=== PATIENT | female | born 2005 | race Hispanic/Latino ===

== ENCOUNTER 2023-07-10 22:27 | Outpatient (CLI) | payer OTHER ==
[~2023-07-10] VITALS: Ht 152.4 cm; Wt 54.7 kg
[~2023-07-10 22:27] MED LIST: PANT20TA6 PO
[2023-07-10 22:46] VITALS: BP 120/68
[2023-07-10] MEDS ORDERED: PRENTAB9 PO (22:51)
[2023-07-10] MEDS ORDERED: HOME MED LIST COMPLETE! XX SCH (22:55)
[2023-07-11 00:07] VITALS: BP 113/57
== END 2023-07-11 00:14 | disposition home or self-care (01) ==
LOC: M LDO 22:27
PROVIDERS: ATTEND Obstetrics & Gynecology
DX: O36.8130 Decreased fetal movements, third trimester, not applicable or unspecified (principal); Z3A.33 33 weeks gestation of pregnancy
CPT/HCPCS: 59025; G0463

== ENCOUNTER 2023-08-27 13:37 | Inpatient (IN) | payer OTHER ==
[~2023-08-27] VITALS: Ht 152.4 cm; Wt 60.0 kg
[2023-08-27] VITALS (18 sets, daily range): BP systolic 117–199; BP diastolic 67–93
[~2023-08-27 13:37] MED LIST changes: +PRENTAB9 PO
[2023-08-27] MEDS ORDERED: FOLI1TAB11 PO (14:07)
[2023-08-27] MEDS ORDERED: FERR325T3 PO (14:07)
[2023-08-27] MEDS ORDERED: HOME MED LIST COMPLETE! XX SCH (14:10)
[2023-08-27] MEDS ORDERED: OXYTOCIN DRIP 30 UNITS in IV 1 EA IV PRN (14:40)
[2023-08-27] MEDS: PENICILLIN G POTASSIUM 5 MU IV 5 MU in D5W MINI-BAG PLUS 100 ML IV STA (15:31)
[2023-08-27 15:32] LABS: URIC ACID 4.2 MG/DL (3.1-7.8)
[2023-08-27] MEDS: LR 1,000 ML IV SCH (15:32)
[2023-08-27 15:34] LABS: LDH LACTATE DEHYDROGENASE 213 U/L (120-246)
[2023-08-27 15:35] LABS: ALT/SGPT 12 U/L (7.0-40); AST/SGOT 21 U/L (<34); BILIRUBIN,TOTAL 0.4 MG/DL (0.3-1.2); HEMATOCRIT 28.3 % (36.0-47.0); HEMOGLOBIN 8.9 g/dl (12.0-15.5); MEAN CORPUSCULAR HEMOGLOBIN 28.2 pg (27.0-33.0); MEAN CORPUSCULAR HGB CONC 31.4 g/dl (32.0-36.5); MEAN CORPUSCULAR VOLUME 89.6 fl (80.0-96.0); PLATELET COUNT, AUTOMATED 233 10^3/uL (150-450); RED BLOOD COUNT 3.16 10^6/uL (4.00-5.40); WHITE BLOOD COUNT 6.7 10^3/uL (4.0-10.0)
[2023-08-27 15:42] LABS: TOTAL PROTEIN,RANDOM URINE 58.3 MG/DL (0.0-14.0)
[2023-08-27 15:47] LABS: CREATININE,RANDOM URINE 72.2 MG/DL
[2023-08-27 16:10] LABS: HEPATITIS C VIRUS ABY INDEX < 0.02 INDEX (<0.8)
[2023-08-27] MEDS: OXYTOCIN DRIP 30 UNITS in IV 1 EA IV SCH (17:38)
[2023-08-27] MEDS: PEN G POT 3,000,000 UNIT/50 ML 3,000,000 UNIT in IV 1 EA IV SCH (20:03)
[2023-08-27] MEDS: PROMETHAZINE 25MG/ML 1ML VIAL IV ONE (22:10)
[2023-08-27] MEDS: BUTORPHANOL 2 MG/ML 1ML VIAL IV ONE (22:11)
[2023-08-28] VITALS (29 sets, daily range): BP systolic 99–141; BP diastolic 56–93; TEMP 98.8–100; O2SAT 97–99
[2023-08-28] MEDS ORDERED: ONDANSETRON 4MG 2ML VIAL IV PRN (03:10)
[2023-08-28] MEDS ORDERED: LR 500 ML IV PRN (03:10)
[2023-08-28] MEDS ORDERED: diphenhydrAMINE 50MG/ML VIAL IV PRN (03:10)
[2023-08-28] MEDS ORDERED: NALOXONE INJ 0.4MG/1ML VIAL IV PRN (03:10)
[2023-08-28] MEDS ORDERED: ePHEDrine SULFATE 25 MG/5 ML(5MG/ML) SYRINGE IVP PRN (03:10)
[2023-08-28] MEDS ORDERED: EPIDURAL/PCA KEYS XX PRN (03:10)
[2023-08-28] MEDS ORDERED: FENTANYL/ROPIVACAINE/NACL BAG 100 ML EPIDURAL SCH (03:10)
[2023-08-28] MEDS: LIDOCAINE 1% MDV 20ML VIAL INFIL PRN (05:06)
[2023-08-28] MEDS ORDERED: METHYLERGONOVINE MALEATE 0.2 MG TAB PO PRN (05:40)
[2023-08-28] MEDS ORDERED: IBUPROFEN 600MG TAB PO PRN (05:40)
[2023-08-28] MEDS ORDERED: RHO(D) IMMUNE GLOBULIN/MALTOSE 500MCG(2500IU)/2.2ML VIAL (WINRHO) IM SCH (05:40)
[2023-08-28] MEDS ORDERED: ACETAMINOPHEN TAB 650MG DOSE (2X325MG) PO PRN (05:40)
[2023-08-28] MEDS ORDERED: DOCUSATE SODIUM 100MG CAPSULE PO PRN (05:40)
[2023-08-28] MEDS ORDERED: METHYLERGONOVINE MALEATE 0.2MG/ML 1ML VIAL ONE (05:50)
[2023-08-28] MEDS: PRENATAL VITAMINS CHEWABLE TABLET PO SCH (09:00)
[2023-08-28] MEDS: LACTATED RINGER'S 1000 ML IV STA (11:46)
[2023-08-28] MEDS: ACETAMINOPHEN 500 MG TAB PO PRN (11:49)
[2023-08-28] MEDS: AMPICILLIN SOD/SULBACTAM SOD 3 GM in D5W MINI-BAG PLUS 100 ML IV SCH (11:55)
[2023-08-28 12:33] LABS: MEAN CORPUSCULAR HEMOGLOBIN 27.8 pg (27.0-33.0); MEAN CORPUSCULAR VOLUME 86.8 fl (80.0-96.0); PLATELET COUNT, AUTOMATED 208 10^3/uL (150-450); RED BLOOD COUNT 2.27 10^6/uL (4.00-5.40); WHITE BLOOD COUNT 17.2 10^3/uL (4.0-10.0)
[2023-08-28 12:55] LABS: HEMATOCRIT 19.7 % (36.0-47.0)
[2023-08-28 12:58] LABS: HEMOGLOBIN 6.3 g/dl (12.0-15.5)
[2023-08-28 13:13] LABS: INR 1.14; PARTIAL THROMBOPLASTIN TIME 28.7 SECONDS (24.8-34.2); PROTHROMBIN TIME 14.3 SECONDS (12.5-14.5)
[2023-08-29 06:00] VITALS: BP 132/71; O2SAT 100
[2023-08-29] MEDS: DIBUCAINE 1% OINTMENT 30GM TOP PRN (07:40)
[2023-08-29] MEDS: IBUPROFEN 800 MG TAB PO PRN (07:41)
[2023-08-29 09:22] LABS: HEMATOCRIT 28.1 % (36.0-47.0); MEAN CORPUSCULAR HGB CONC 32.7 g/dl (32.0-36.5); MEAN CORPUSCULAR VOLUME 85.4 fl (80.0-96.0); PLATELET COUNT, AUTOMATED 208 10^3/uL (150-450); RED BLOOD COUNT 3.29 10^6/uL (4.00-5.40); WHITE BLOOD COUNT 12.9 10^3/uL (4.0-10.0)
[2023-08-29 09:34] LABS: HEMOGLOBIN 9.2 g/dl (12.0-15.5)
[2023-08-29 14:00] VITALS: BP 135/83; O2SAT 100
[2023-08-29 18:00] VITALS: BP 145/90; O2SAT 100
[2023-08-29 22:00] VITALS: BP 138/75; O2SAT 100
[2023-08-30 02:00] VITALS: BP 140/63; O2SAT 97
[2023-08-30 06:00] VITALS: BP 127/67; O2SAT 98
[2023-08-30] MEDS: MEASLES,MUMPS,RUBELLA VACCINE INJ (MMR-II) SC.IMMUN ONE (09:00)
[2023-08-30 10:00] VITALS: BP 126/59; O2SAT 99
[2023-08-30] MEDS: INFLUENZA QUADRIVALENT PF VACCINE 0.5ML SYRINGE IM.IMMUN ONE (10:20)
== END 2023-08-30 14:20 | disposition home or self-care (01) | DRG 807 ==
LOC: M LDO 13:37 → M LDI 14:22 → M OBS 08-28 11:08
PROVIDERS: ADMIT Specialist; ATTEND Specialist
PROC: 10E0XZZ Delivery of Products of Conception, External Approach (ICD-10-PCS; principal; 2023-08-28)
PROC: 0KQM0ZZ Repair Perineum Muscle, Open Approach (ICD-10-PCS; 2023-08-28)
PROC: 10907ZC Drainage of Amniotic Fluid, Therapeutic from Products of Conception, Via Natural or Artificial Opening (ICD-10-PCS; 2023-08-28)
DX: O14.94 Unspecified pre-eclampsia, complicating childbirth (principal); Z37.0 Single live birth; Z3A.40 40 weeks gestation of pregnancy; O70.1 Second degree perineal laceration during delivery